=== PATIENT | female | born 1995 | race Caucasian/White ===

== ENCOUNTER → 2017-06-07 | Outpatient (CLI) | payer BC ==
[2017-06-10 10:08] LABS: CHLAMYDIA TRACH RNA*** NOT DETECTED (NOT DETECTED); GC (NEIS GONORRHOEAE)RNA** NOT DETECTED (NOT DETECTED)
== END | disposition home or self-care (01) ==
LOC: C.LABSPEC 13:20
PROVIDERS: ATTEND Obstetrics & Gynecology
DX: Z11.3 Encounter for screening for infections with a predominantly sexual mode of transmission (principal)

== ENCOUNTER → 2017-06-07 | Outpatient (CLI) | payer BC | END | disposition home or self-care (01) | LOC: C.PAPS 14:21 | PROVIDERS: ATTEND Obstetrics & Gynecology | DX: Z01.419 Encounter for gynecological examination (general) (routine) without abnormal findings (principal) ==

== ENCOUNTER → 2018-06-11 | Outpatient (CLI) | payer BC | END | disposition home or self-care (01) | LOC: C.LABSPEC 13:14 | PROVIDERS: ATTEND Obstetrics & Gynecology | DX: Z11.3 Encounter for screening for infections with a predominantly sexual mode of transmission (principal) ==

== ENCOUNTER → 2018-06-11 | Outpatient (CLI) | payer BC | END | disposition home or self-care (01) | LOC: C.PAPS 13:30 | PROVIDERS: ATTEND Obstetrics & Gynecology | DX: Z01.419 Encounter for gynecological examination (general) (routine) without abnormal findings (principal); Z11.51 Encounter for screening for human papillomavirus (HPV) ==

== ENCOUNTER 2021-03-22 07:30 | Inpatient (IN) ==
[2021-03-22] MEDS ORDERED: OXYTOCIN 30 UNITS/500 ML BAG IV PRN ×3 (07:51→17:45)
--- NOTE | 2021-03-22 08:24 | History & Physical Report ---
Date of Service March 22, 2021 Assessment & Plan (1) Post term over 40 weeks: (2) Diet controlled gestational diabetes mellitus: (3) Encounter for induction of labor: admit, iv, labs. cx favorable, will start pitocin. bsg now and then q2hr in labor. fhts categ 1. patient and partner agreeable. Admission and Anticipated Discharge Date Admission Date: March 22, 2021 History of Present Illness Chief Complaint: planned induction Primary Care Provider: Yuliet Fried 25yo at 40+wks ega with cc of planned induction. No rom, no vb. Had ripening balloon placed last night and fell out this am. +FM. No ctx PNC c/b 1. GDM diet controlled 2. Recent +covid, no sx, now beyond day 11 PNL rh pos, ri, GBS neg. Allergies Allergy/AdvReac Type Severity Reaction Status Date / Time No Known Drug Allergies Allergy Unknown Verified 03/22/21 08:10 Home Medications Medication Instructions Recorded Confirmed Type acetone (urine) test #50 01/13/21 03/21/21 Rx blood sugar diagnostic #150 01/13/21 03/21/21 Rx blood-glucose meter #1 01/13/21 03/21/21 Rx lancets 33 gauge #150 01/13/21 03/21/21 Rx prenat.vits,toni,ebs-exnh-jaama 1 tab PO DAILY 03/22/21 03/22/21 History [ Vitamin] Patient History Medical History (Updated 03/22/21 @ 08:25 by Sherry García MD, FACOG) Cervical cancer screening Encounter for annual routine gynecological examination Varicella vaccination Surgical History H/O wisdom tooth extraction Hx of appendectomy Family History Grandmother (Paternal) Colorectal cancer Mother Thyroid disorder Osteoporosis Father Nephrolithiasis Denies family history of Ovarian cancer Breast cancer Social History (Updated 07/29/20 @ 08:59 by Nolvia Cox) Smoking Status: Never smoker Hx Alcohol Use: No Hx Substance Use: No Preferred Language: Belarusian Communication Ability: Effective Tower 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 Required: No Beliefs That Will Affect Care: None marital status: marital status details: Jaquan Albrecht (29) [phone] Current Living Situation: Spouse Current Living Situation Comment: Jaquan current occupational status: employed current occupation: works from [employer] Other Information That Helps Us Care for You: No Feels Safe at Home: Yes Safety Concerns: Feels Safe At This Time Assistive Devices: None Physical Exam Constitutional: WD/WN, vitals as above Gastrointestinal (Abdomen): soft gravid nt, efw 7# Musculoskeletal: no edema Neurologic: grossly normal Psychiatric: A+Ox3, euthymic affect Genitourinary: OB Exam Abdomen: + estimated weight (7#) Manual OB Exam: + cervical dilation 4 cm, + cervical effacement 50% and + station -1 OB Exam Monitor Tracing: + external FHT monitor used (140 mod variability ), + external uterine monitor used (q3-8), + category I and + normal FHT variability Results & Data ([facility]) Vital Signs (Past 12 Hours) Vital Signs Temp Pulse Resp BP 03/22/21 07:50 98.2 F 20 03/22/21 07:48 83 114/75 Coding Level of Care Code None Diagnoses Post term over 40 weeks O48.0 Diet controlled gestational diabetes mellitus O24.410 Encounter for induction of labor Z34.90
[2021-03-22 08:46] LABS: Hematocrit (blood only) 36.1 % (37-47); Hemoglobin 12.6 g/dL (12.0-16.0); Mean Corpuscular Hemoglobin 32.1 pg (25-34); Mean Corpuscular Hgb Conc 34.9 g/dL (32-36); Mean Corpuscular Volume 92.1 fL (80-100); Mean Platelet Volume 11.2 fL (7.4-10.4); Platelet Count 264 K/uL (130-400); RDW Coefficient of Variation 13.5 % (11.5-14.5); RDW Standard Deviation 45.2 fL (36.4-46.3); Red Blood Count 3.92 M/uL (4.2-5.4); White Blood Count 9.79 K/uL (4.8-10.8)
[2021-03-22] MEDS: LACTATED RINGER'S 1,000 ML IV PRN ×2 (08:55→14:24)
--- NOTE | 2021-03-22 12:17 | Labor Progress Brief Note ---
Date of Service March 22, 2021 Subjective Feels ctx, not terribly uncomfortable Assessment & Plan (1) Post term over 40 weeks: (2) Diet controlled gestational diabetes mellitus: (3) Encounter for induction of labor: 25 y/o G1 at 40 4/7 wga presenting for IOL for A1GDM VSS Fetus cat 1 Labor - pit at 11, now s/p arom. Continue to augment GBS neg Epidural PRN GDM - BG wnl on admit, will q2h BG when active Admission and Anticipated Discharge Date Admission Date: March 22, 2021 Physical Exam Constitutional: WD/WN, vitals as above Respiratory: normal respiratory effort; no respiratory distress and no labored breathing Genitourinary: Manual OB Exam: + cervical dilation 4 cm, + cervical effacement 70%, + station -2 and + amniotic fluid (AROM) clear OB Exam Monitor Tracing: + external FHT monitor used, + external uterine monitor used (q3-4min) and + category I (125/mod/+accel/-decel) Results & Data ([facility]) Vital Signs (Past 12 Hours) Vital Signs Temp Pulse Resp BP 03/22/21 12:00 98.6 F 70 20 120/77 03/22/21 11:01 67 106/67 03/22/21 10:07 76 112/67 03/22/21 08:58 74 110/71 03/22/21 07:50 98.2 F 20 03/22/21 07:48 83 114/75 Coding Level of Care Code None Diagnoses Post term over 40 weeks O48.0 Diet controlled gestational diabetes mellitus O24.410 Encounter for induction of labor Z34.90
[2021-03-22] MEDS ORDERED: BUPIVACAINE 0.25% 30 ML VIAL ONE (14:13)
[2021-03-22] MEDS ORDERED: ePHEDrine sulfate 50 MG/ML AMP ONE (14:13)
[2021-03-22] MEDS ORDERED: fentaNYL citrate 100 MCG/2 ML VIAL ONE (14:13)
[2021-03-22] MEDS ORDERED: fentaNYL 2MCG/ML ROPIVACAINE 1.25MG/ML 100 ML BAG EPI ONE (14:14)
--- NOTE | 2021-03-22 15:01 | Anesthesiology Consultation ---
Date of Service March 22, 2021 Assessment & Plan Chart Review Chart Review: Acceptable Risk for Labor Epidural Consults Requested none History Height/Weight Height: 5 ft 6 in Weight: 72.575 kg Allergies Allergy/AdvReac Type Severity Reaction Status Date / Time No Known Drug Allergies Allergy Unknown Verified 03/22/21 08:10 Medications Home Medications Medication Instructions Recorded Confirmed Last Taken acetone (urine) test #50 01/13/21 03/21/21 Unknown blood sugar diagnostic #150 01/13/21 03/21/21 Unknown blood-glucose meter #1 01/13/21 03/21/21 Unknown lancets 33 gauge #150 01/13/21 03/21/21 Unknown prenat.vits,toni,hsa-oivx-jmrpk 1 tab PO DAILY 03/22/21 03/22/21 03/22/21 06:00 [ Vitamin] Active Medications Generic Name Dose Route Start Last Admin Trade Name Freq PRN Reason Stop Dose Admin Oxytocin 30 units in 500 mls @ 11 mls/hr 03/22/21 07:51 03/22/21 11:35 Pitocin IV 03/24/21 07:50 0.66 units/hr .Q24H PRN 11 mls/hr Labor Induction/Augmentation Titration Protocol 0.66 UNITS/HR Lactated Ringer's 1,000 mls @ 125 mls/hr 03/22/21 07:51 03/22/21 14:24 Lr IV 03/24/21 07:50 999 mls/hr .Q8H PRN Administration L&D Protocol Protocol Past Medical History Medical History Cervical cancer screening Encounter for annual routine gynecological examination Varicella vaccination Past Family History Family History Grandmother (Paternal) Colorectal cancer Mother Thyroid disorder Osteoporosis Father Nephrolithiasis Denies family history of Ovarian cancer Breast cancer Past Surgical History Surgical History H/O wisdom tooth extraction Hx of appendectomy Social History Smoking Status: Never smoker Hx Alcohol Use: No Hx Substance Use: No Physical Exam Vital Signs Last Vital Signs Temp 36.6 C 03/22/21 12:55 Pulse 78 04/28/21 15:00 Resp 18 03/22/21 12:55 BP 115/62 03/22/21 15:00 Pulse Ox 100 03/22/21 14:55 Testing Laboratory Results 03/22/21 08:31
[2021-03-22] MEDS ORDERED: ePHEDrine sulfate 50 MG/ML AMP IV PRN (15:03)
[2021-03-22] MEDS ORDERED: fentaNYL 2MCG/ML ROPIVACAINE 1.25MG/ML 100 ML BAG EPI PRN (15:03)
[2021-03-22] MEDS ORDERED: NALOXONE HCL 1 MG in SODIUM CHLORIDE 0.9% 1000ML 1,000 ML IV PRN (15:03)
[2021-03-22] MEDS ORDERED: NALOXONE HCL 0.4 MG/1 ML VIAL/CARP IV PRN (15:03)
[2021-03-22] MEDS ORDERED: diphenhydrAMINE 50 MG/ML VIAL IV PRN (15:03)
--- NOTE | 2021-03-22 17:01 | Delivery Summary ---
Vaginal Delivery Summary Date of Service March 22, 2021 Vaginal Delivery Summary (w/ vaginal laceration repair) PREOPERATIVE DIAGNOSIS: 1. Single intrauterine at 40 4/7 wga 2. A1GDM 3. Recent COVID+ POSTOPERATIVE DIAGNOSIS: 1. Single intrauterine at 40 4/7 wga 2. A1GDM 3. Recent COVID+ 4. Delivered PROCEDURE: 1. Normal spontaneous vaginal delivery. SURGEON: Tiki Gallardo MD ANESTHESIA: Epidural. ESTIMATED BLOOD LOSS: 300 mL FLUIDS: Continuous LR. URINE OUTPUT: None. COMPLICATIONS: None. CONDITION: Stable. INDICATIONS: 25 y/o G1 at 40 4/7 wga presented for IOL for A1GDM. No complaints on arrival. Induction was begun with quesada bulb that was placed last evening and fell out this morning. She was checked and found to be 4cm. Pitocin was started and she subsequently underwent AROM. She received an epidural for pain control. She then quickly progressed to complete and desired to push. FINDINGS: A viable male infant with Apgars of 8 and 9 at 1 and 5 minutes respectively. SPECIMEN: Cord blood OPERATIVE REPORT: The patient progressed to 10 cm, 100% effaced and +2 station, pushed over intact perineum with anesthesia to deliver a viable male infant, Apgars as above. Head of delivered in NICKI position. No nuchal cord was present. Body and shoulders were delivered without difficulty. was delivered to maternal abdomen and nursing staff. Delayed cord clamping was performed for 60 seconds. Cord was clamped and cut. Cord blood was obtained. Placenta delivered spontaneously intact with 3-vessel cord. IV oxytocin and fundal massage were given for excellent hemostasis. Vagina, cervix, perineum, and placenta were inspected. A vaginal and right labial laceration were noted, repaired in the usual fashion using 3-0 and 4-0 vicryl respectively. A hemostatic periurethral laceration was noted and repair not needed. There was excellent hemostasis. Sponge and needle counts correct x2. No sponges were left behind. Mother and stable in immediate period. [facility] [place] Vaginal Delivery Codes: 36531 global code for the antepartum, delivery, and post- Delivery Type Details: (w/ vaginal laceration repair)
--- NOTE | 2021-03-22 17:14 | Anesthesia Procedure Note ---
Date of Service March 22, 2021 Anesthesia Post Epidural Note Vital Signs Vital Signs: Temp Pulse Resp BP Pulse Ox 36.6 C 66 18 110/55 L 100 03/22/21 12:55 03/22/21 17:11 03/22/21 12:55 03/22/21 17:11 03/22/21 16:25 Notes Mental Status: alert / awake / arousable Nausea / Vomiting: adequately controlled Pain: adequately controlled Airway Patency, RR, SpO2: stable & adequate BP & HR: stable & adequate Hydration State: stable & adequate Neuraxial Anesthesia: was administered and sensory block is resolving Anesthetic Complications: no major complications apparent and Pt Satisfied with anesthetic care Epidural: Removed without complications and With tip intact
[2021-03-22] MEDS ORDERED: BENZOCAINE 20% AER SPR 82.5 GM CAN EXT PRN (17:45)
[2021-03-22] MEDS ORDERED: HYDROCORTISONE ACETATE 25 MG SUPP PR PRN (17:45)
[2021-03-22] MEDS ORDERED: SUPERCREAM 0.870% 15 GM JAR EXT PRN (17:45)
[2021-03-22] MEDS ORDERED: ACETAMINOPHEN 325 MG TAB PO PRN (17:45)
[2021-03-22] MEDS ORDERED: bisacodyL 10 MG SUPP PR PRN (17:45)
[2021-03-22] MEDS ORDERED: LACTATED RINGER'S 1,000 ML IV SCH (17:45)
[2021-03-22] MEDS ORDERED: DIPHTHERIA/TETANUS/PERTUSSIS 0.5 ML SYR/VIAL IM ONE (17:45)
[2021-03-22] MEDS: DOCUSATE SODIUM 100 MG CAP PO SCH (20:28)
[2021-03-22] MEDS: IBUPROFEN 600 MG TAB PO PRN (21:26)
--- NOTE | 2021-03-23 06:30 | Obstetrical Progress Note ---
Date of Service <Gilbert Nunes MD - Last Filed: 03/23/21 07:32> March 23, 2021 Assessment & Plan <Gilbert Nunes MD - Last Filed: 03/23/21 07:32> (1) Post term over 40 weeks: A/P: Maximino Albrecht is a 25yo female G1 on PPD#1 following IOL at 40+4wga. * Patient feels well today; eating well, voiding well, ambulating well * Pain well-controlled with ibuprofen 600mg q4h prn * PNL: Rh pos, RI, GBS neg * Covid+ on 03/08/21 * Routine care: OOB, ambulation, diet progression as tolerated * After discharge, will have six-week follow-up with Dr. Paulina Granger <Gilbert Nunes MD - Last Filed: 03/23/21 07:32> Maximino Albrecht is a 25yo female G1 on PPD#1 following IOL at 40+4wga. This morning she reports feeling well overall. Reports mild, 2/10 crampy abdominal pain well-managed on analgesics. Tolerating PO intake without nausea or vomiting. Patient has been able to ambulate without lightheadedness or dizziness. Voiding well without difficulty. Lochia continues, though with some improvement this morning. Currently . Review of Systems Denies fever, chills, CP, SOB, cough, breast pain, dysuria, leg pain, leg swelling, headache, and changes in vision. Physical Exam <Gilbert Nunes MD - Last Filed: 03/23/21 07:32> General: alert, oriented, no acute distress Cardiac: regular rate and rhythm, no murmurs appreciated Respiratory: lungs clear to auscultation bilaterally a/p, no wheezes/rales/rhonchi, no increased work of breathing, symmetrical chest rise, no respiratory distress Abdomen: soft, minimally tender, nondistended, bowel sounds present Uterus: uterine fundus firm, palpable 4cm below umbilicus Lower extremities: no lower extremity edema or swelling, no deep calf pain, Parmjit's negative bilaterally Results & Data ([facility]) <Gilbert Nunes MD - Last Filed: 03/23/21 07:32> Vital Signs (Past 12 Hours) Vital Signs Temp Pulse Pulse Resp BP BP Pulse Ox 03/23/21 05:25 37.1 C 63 16 115/76 98 03/22/21 23:00 37.1 C 64 16 124/70 100 03/22/21 19:30 37.1 C 83 16 133/74 99 03/22/21 18:55 75 118/67 03/22/21 18:40 73 116/63 <Tiki Gallardo MD - Last Filed: 03/23/21 07:46> Co-Signing Physician Notes Resident Physician Supervision Note: I interviewed and examined the patient. Discussed with Dr. Nunes and agree with findings and plan as documented in the note. Any exceptions or clarifications are listed here: PP1, doing well, meeting milestones. VSS, exam benign and wnl. Plan for d/c home tomorrow Documented By: Tiki Gallardo MD Resident Activity Tracking <Gilbert Nunes MD - Last Filed: 03/23/21 07:32> Resident Involvement: Resident Care Provided Care Provided: OB Delivery
[2021-03-23 06:32] LABS: Hematocrit (blood only) 31.7 % (37-47); Hemoglobin 10.9 g/dL (12.0-16.0); Mean Corpuscular Hemoglobin 31.9 pg (25-34); Mean Corpuscular Hgb Conc 34.4 g/dL (32-36); Mean Corpuscular Volume 92.7 fL (80-100); Platelet Count 219 K/uL (130-400); RDW Coefficient of Variation 13.7 % (11.5-14.5); Red Blood Count 3.42 M/uL (4.2-5.4); White Blood Count 13.46 K/uL (4.8-10.8)
[2021-03-23] MEDS: PRENATAL VITAMIN 1 TAB PO SCH (08:20)
[2021-03-23] MEDS: DOCUSATE SODIUM 100 MG CAP PO SCH ×2 (08:20→19:58)
[2021-03-23] MEDS: IBUPROFEN 600 MG TAB PO PRN (08:20)
[2021-03-23] MEDS ORDERED: NON-FORMULARY MEDICATION (Prenat.Vits,Cal,Min-Iron-Folic Tablet) PO SCH (09:00)
[2021-03-24 06:18] LABS: Hematocrit (blood only) 33.4 % (37-47); Hemoglobin 11.2 g/dL (12.0-16.0)
--- NOTE | 2021-03-24 06:23 | Obstetrical Progress Note ---
Date of Service <Gilbert Nunes MD - Last Filed: 03/24/21 07:02> March 24, 2021 Assessment & Plan <Gilbert Nunes MD - Last Filed: 03/24/21 07:02> (1) Post term over 40 weeks: A/P: Maximino Albrecht is a 25yo female G1 on PPD#2 following IOL at 40+4wga. * Patient feels well today; eating well, voiding well, ambulating well * Pain well-controlled with ibuprofen 600mg q4-6h prn * PNL: Rh pos, RI, GBS neg * Covid+ on 03/08/21 * Routine care: OOB, ambulation, diet progression as tolerated * After discharge, will have six-week follow-up with Dr. Paulina Granger <Gilbert Nunes MD - Last Filed: 03/24/21 07:02> Maximino Albrecht is a 25yo female G1 on PPD#2 following IOL at 40+4wga. This morning she reports feeling well, more rested than yesterday. Reports minimal abdominal pain, well-managed on analgesics. Tolerating PO intake without nausea or vomiting. Patient has been able to ambulate without lightheadedness or dizziness. Voiding well without difficulty. Lochia continues, though with some improvement this morning. Currently . She does note mild swelling of her hands and feet, though this has improved since yesterday. Denies fever, chills, CP, SOB, cough, breast pain, dysuria, leg pain, leg swelling, headache, and changes in vision. Physical Exam <Gilbert Nunes MD - Last Filed: 03/24/21 07:02> General: alert, oriented, no acute distress Cardiac: regular rate and rhythm, no murmurs appreciated Respiratory: lungs clear to auscultation bilaterally a/p, no wheezes/rales/rhonchi, no increased work of breathing, symmetrical chest rise, no respiratory distress Abdomen: soft, minimally tender, nondistended, bowel sounds present Uterus: uterine fundus firm, palpable below umbilicus Lower extremities: trace edema of the hands and feet bilaterally, no deep calf tenderness, Parmjit's negative bilaterally Results & Data ([facility]) <Gilbert Nunes MD - Last Filed: 03/24/21 07:02> Vital Signs (Past 12 Hours) Vital Signs Temp Pulse Resp BP Pulse Ox 03/23/21 23:15 36.7 C 83 16 114/73 97 03/23/21 19:55 37.1 C 85 16 120/76 96 <Shari Nolasco MD - Last Filed: 03/24/21 07:11> Co-Signing Physician Notes Resident Physician Supervision Note: I interviewed and examined the patient. Discussed with Dr. Jett and agree with findings and plan as documented in the note. Any exceptions or clarifications are listed here: [ ] Documented By: Shari Nolasco MD, FACOG Resident Activity Tracking <Gilbert Nunes MD - Last Filed: 03/24/21 07:02> Resident Involvement: Resident Care Provided Care Provided: OB Delivery
[2021-03-24] MEDS: DOCUSATE SODIUM 100 MG CAP PO SCH (08:32)
[2021-03-24] MEDS: PRENATAL VITAMIN 1 TAB PO SCH (08:32)
== END 2021-03-24 11:57 | disposition home or self-care (01) | DRG 807 ==
LOC: 4S1 07:30 → 4S2 19:28

== ENCOUNTER 2023-05-02 08:23 | Inpatient (IN) ==
[2023-05-02] MEDS ORDERED: DEXTROSE 50% 50 ML SYRINGE IV PRN (08:44)
[2023-05-02] MEDS ORDERED: SODIUM CHLORIDE 0.9% 1000ML 1,000 ML IV PRN (08:44)
[2023-05-02] MEDS ORDERED: DEXTROSE 5% 1,000 ML IV PRN (08:44)
[2023-05-02] MEDS ORDERED: OXYTOCIN 30 UNITS/500 ML BAG IV PRN ×3 (08:44→16:44)
[2023-05-02] MEDS ORDERED: LIDOCAINE 1% LOCAL 20 ML VIAL INFIL PRN (08:44)
[2023-05-02] MEDS ORDERED: INSULIN REGULAR 250 UNITS in SODIUM CHLORIDE 0.9% 247.5 ML IV PRN (08:44)
--- NOTE | 2023-05-02 08:59 | History & Physical Report ---
Date of Service May 02, 2023 Assessment & Plan (1) Encounter for induction of labor: (2) Insulin controlled gestational diabetes mellitus (GDM) during : Plan - Will admit to L&D for induction of labor. - CBC and CMP mostly benign. No s/s of eclampsia. - glucose checks Q4H due to GDM, took insulin last night. - Covid negative - anesthesia consulted for epidural. Admission and Anticipated Discharge Date Admission Date: May 02, 2023 History of Present Illness Chief Complaint: Induction of labor Primary Care Provider: Yuliet Fried at 39w 1d confirmed via LMP. Here for indcution. Complications with this include GDM on insulin. Has been attending OB appointments regularly. Currently taking no medications. Contractions: none. Fluid or Blood loss: none Movement: active Labs - Blood type: O+ - Antibody screen: negative - H.6 - Hct: 33.2 - Plt: 319 - Rubella: immune - VDRL/RPR: negative - Gonorrhea: negative - Chlamydia: negative - HIV: negative - HbSAg: negative - GBS: negative - Glucose tolerance x 2: high, GDM Allergies Allergy/AdvReac Type Severity Reaction Status Date / Time No Known Drug Allergies Allergy Unknown Verified 05/01/23 13:17 Home Medications Medication Instructions Recorded Confirmed Type prenat.vits,toni,sdc-rxne-tkddr 1 tab PO DAILY 03/22/21 05/01/23 History omega-3 fatty acids [Fish Oil] PO 05/14/22 05/01/23 History acetone (urine) test (Ketone Urine #50 ea 10/05/22 05/01/23 Rx Test strips) blood sugar diagnostic (OneTouch #150 ea 10/11/22 05/01/23 Rx Verio test strips) pen needle, diabetic 32 gauge x #50 ea 10/26/22 05/01/23 Rx 5/32" (BD Ultra-Fine Sylvia Pen Needle) insulin NPH isoph U-100 human 100 3 unit (0.03 mL) subcut QPM #15 mL 03/08/23 05/01/23 Rx unit/mL (3 mL) subcutaneous pen (Novolin N FlexPen) Patient History Medical History (Updated 05/02/23 @ 10:06 by Dano Crowell DO) Cervical cancer screening Diet controlled gestational diabetes mellitus Encounter for annual routine gynecological examination Encounter for induction of labor Post term over 40 weeks Varicella vaccination Surgical History H/O wisdom tooth extraction Hx of appendectomy Family History Grandmother (Paternal) Colorectal cancer Mother Thyroid disorder Osteoporosis Father Nephrolithiasis Denies family history of Ovarian cancer Breast cancer Uterine cancer Social History (Updated 09/26/22 @ 07:38 by Patricia Deleon) Smoking Status: Never smoker Second Hand Exposure: No; Do You Dip or Chew Tobacco: No; Tobacco Cessation Education Requested by Patient: No Hx Alcohol Use: No Hx Substance Use: No Preferred Language: Greek Communication Ability: Effective Tree Care Foreman Required: No Beliefs That Will Affect Care: None marital status: marital status details: Jaquan Albrecht (31) [phone] Current Living Situation: Spouse Current Living Situation Comment: Jaquan- , Son- Fernando current occupational status: employed 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 Denies breast pain. Denies dysuria. Denies headache or changes in vision. Physical Exam Physical Exam: General: Alert, oriented. No acute distress. Cardiac: Regular rate and rhythm, no murmurs/rubs/gallops. Respiratory: Clear to auscultation bilaterally a/p, no wheezes/rales/rhonchi. No increased work of breathing. Symmetrical chest rise. No respiratory distress. Abdomen: Gravid; Cat 1 FHTs; Position: Cephalic presentation, 7-8 EFW Pelvic: Dilation 1.5cm; Effacement 40; Station -[address] Araujo Lower Extremities: No lower extremity edema or swelling. No deep calf pain. Parmjit's negative bilaterally Supervising Physician Co-Signing Physician Notes Patient seen with resident and agree with the above findings and plan Resident Activity Tracking Resident Involvement: Resident Care Provided Care Provided: OB Delivery
[2023-05-02 09:27] LABS: Hemoglobin 11.9 g/dl (12.0-16.0); Mean Corpuscular Volume 94.1 fL (80.0-100.0); Mean Platelet Volume 10.6 fL (9.4-12.4); Platelet Count 241 K/uL (130-400); RDW Coefficient of Variation 13.7 % (11.5-14.5); RDW Standard Deviation 47.3 fL (36.4-46.3); Red Blood Count 3.72 M/uL (4.20-5.40); White Blood Count 8.47 K/ul (4.8-10.8)
[2023-05-02] MEDS: LACTATED RINGER'S 1,000 ML IV PRN ×2 (09:35→12:55)
[2023-05-02 10:25] LABS: Albumin Level 3.3 gm/dl (3.4-5.0); Bilirubin,Total 0.6 mg/dl (0.2-1.0); Calcium 8.8 mg/dl (8.6-10.3); Potassium 3.6 mmol/L (3.5-5.1)
[2023-05-02 10:31] LABS: Albumin Globulin Ratio 1.1 (0.9-2); BUN Creatinine Ratio 25.9 (10-20); Creatinine Clr Calc Pharmacy 155.1 ml/min; Est GFR (African American) 145.4 ml/min; Est GFR (Non-African American) 125.4 ml/min; Total Protein 6.3 gm/dl (6.0-8.3)
[2023-05-02] MEDS ORDERED: ePHEDrine sulfate 50 MG/ML AMP ONE (12:09)
[2023-05-02] MEDS ORDERED: fentaNYL citrate PF 100 MCG/2 ML VIAL ONE (12:09)
[2023-05-02] MEDS ORDERED: SODIUM CHLORIDE 0.9% PF INJ 10 ML VIAL ONE (12:10)
[2023-05-02] MEDS ORDERED: fentaNYL 2MCG/ML ROPIVACAINE 1.25MG/ML 100 ML BAG EPI ONE (12:10)
[2023-05-02] MEDS ORDERED: BUPIVACAINE 0.25% PF 30 ML VIAL ONE (12:10)
[2023-05-02] MEDS ORDERED: LIDOCAINE 2%/EPINEPHRINE 1:200,000 20 ML PF ONE (12:10)
[2023-05-02] MEDS ORDERED: fentaNYL citrate PF 100 MCG/2 ML VIAL EPI PRN (12:29)
[2023-05-02] MEDS ORDERED: NALOXONE HCL 1 MG in SODIUM CHLORIDE 0.9% 1000ML 1,000 ML IV PRN (12:29)
[2023-05-02] MEDS ORDERED: BUPIVACAINE 0.25% PF 30 ML VIAL EPI STA (12:29)
[2023-05-02] MEDS ORDERED: diphenhydrAMINE 50 MG/ML VIAL IV PRN (12:29)
[2023-05-02] MEDS ORDERED: SODIUM CHLORIDE 0.9% PF INJ 10 ML VIAL EPI STA (12:29)
[2023-05-02] MEDS ORDERED: fentaNYL citrate PF 100 MCG/2 ML VIAL EPI STA (12:29)
[2023-05-02] MEDS ORDERED: ROPIVACAINE 0.5% PF 5 MG/ML 20 ML VIAL EPI PRN (12:29)
[2023-05-02] MEDS ORDERED: LIDOCAINE 2%/EPINEPHRINE 1:200,000 20 ML PF EPI STA (12:29)
[2023-05-02] MEDS ORDERED: NALOXONE HCL 0.4 MG/1 ML VIAL/CARP IV PRN (12:29)
[2023-05-02] MEDS ORDERED: ePHEDrine sulfate 50 MG/ML AMP IV PRN (12:29)
[2023-05-02] MEDS ORDERED: LIDOCAINE 2% MPF LOCAL 5 ML VIAL EPI PRN (12:29)
[2023-05-02] MEDS ORDERED: SODIUM CHLORIDE 0.9% PF INJ 10 ML VIAL EPI PRN (12:29)
[2023-05-02] MEDS ORDERED: fentaNYL 2MCG/ML ROPIVACAINE 1.25MG/ML 100 ML BAG EPI PRN (12:29)
[2023-05-02] MEDS ORDERED: NALBUPHINE HCL INJ 10 MG/ML AMP IV PRN (12:29)
[2023-05-02] MEDS ORDERED: BUPIVACAINE 0.25% PF 30 ML VIAL EPI PRN (12:29)
--- NOTE | 2023-05-02 12:29 | Anesthesiology Consultation ---
Date of Service May 02, 2023 Assessment & Plan (1) Encounter for pre-operative examination: Chart Review Chart Review: Acceptable Risk for Surgery and Patient NOT seen in Pre Admission Testing Consults Requested none History Height/Weight Height: 5 ft 6 in Weight: 81.193 kg Allergies Allergy/AdvReac Type Severity Reaction Status Date / Time No Known Drug Allergies Allergy Unknown Verified 05/01/23 13:17 Medications Home Medications Medication Instructions Recorded Confirmed Last Taken prenat.vits,toni,mac-ghmv-dcgon 1 tab PO DAILY 03/22/21 05/01/23 03/22/21 06:00 omega-3 fatty acids [Fish Oil] PO 05/14/22 05/01/23 Unknown acetone (urine) test (Ketone Urine #50 ea 10/05/22 05/01/23 Unknown Test strips) blood sugar diagnostic (OneTouch #150 ea 10/11/22 05/01/23 Unknown Verio test strips) pen needle, diabetic 32 gauge x #50 ea 10/26/22 05/01/23 Unknown 532" (BD Ultra-Fine Sylvia Pen Needle) insulin NPH isoph U-100 human 100 3 unit (0.03 mL) subcut QPM #15 mL 03/08/23 05/01/23 Unknown unit/mL (3 mL) subcutaneous pen (Novolin N FlexPen) Active Medications Generic Name Dose Route Start Last Admin Trade Name Freq PRN Reason Stop Dose Admin Lactated Ringer's 1,000 mls @ 125 mls/hr 05/02/23 08:44 05/02/23 12:19 Lr IV 05/04/23 08:43 999 mls/hr .Q8H PRN Infusion L&D Protocol Protocol Oxytocin 30 units in 500 mls @ 8 mls/hr 05/02/23 09:28 05/02/23 11:45 Pitocin IV 05/04/23 09:27 0.48 units/hr .Q24H PRN 8 mls/hr Labor Induction/Augmentation Titration Protocol 0.48 UNITS/HR Past Medical History Medical History Cervical cancer screening Diet controlled gestational diabetes mellitus Encounter for annual routine gynecological examination Encounter for induction of labor Post term over 40 weeks Varicella vaccination Past Family History Family History Grandmother (Paternal) Colorectal cancer Mother Thyroid disorder Osteoporosis Father Nephrolithiasis Denies family history of Ovarian cancer Breast cancer Uterine cancer Past Surgical History Surgical History H/O wisdom tooth extraction Hx of appendectomy Social History Smoking Status: Never smoker Do You Dip or Chew Tobacco: No Hx Alcohol Use: No Hx Substance Use: No Physical Exam Vital Signs Last Vital Signs Temp 98.4 F 05/02/23 12:21 Pulse 72 05/02/23 12:23 Resp 18 05/02/23 12:21 BP 123/66 05/02/23 12:16 Pulse Ox 100 05/02/23 12:23 Testing Laboratory Results 05/02/23 08:52 05/02/23 08:52 05/02/23 10:05 POC Glucose 79
[2023-05-02] MEDS ORDERED: NURSING L&D Epidural Breakthrough Pain Update ONE (15:49)
[2023-05-02] MEDS ORDERED: DIPHTHERIA/TETANUS/PERTUSSIS Vaccine (Tdap, Age 7+yrs) 0.5mL SYR/VL IM ONE (16:44)
[2023-05-02] MEDS ORDERED: BENZOCAINE 20% AER SPR 82.5 GM CAN EXT PRN (16:44)
[2023-05-02] MEDS ORDERED: bisacodyL 10 MG SUPP PR PRN (16:44)
[2023-05-02] MEDS ORDERED: HYDROCORTISONE ACETATE 25 MG SUPP PR PRN (16:44)
[2023-05-02] MEDS ORDERED: ACETAMINOPHEN 325 MG TAB PO PRN (16:44)
--- NOTE | 2023-05-02 19:17 | Anesthesia Procedure Note ---
Date of Service May 02, 2023 Anesthesia Post Epidural Note Vital Signs Vital Signs: Temp Pulse Resp BP Pulse Ox O2 Del Method 99.0 F 79 18 120/80 100 Room Air 05/02/23 19:16 05/02/23 19:16 05/02/23 19:16 05/02/23 19:16 05/02/23 19:16 05/02/23 19:16 Notes Mental Status: alert / awake / arousable and participated in evaluation Nausea / Vomiting: adequately controlled Pain: adequately controlled Airway Patency, RR, SpO2: stable & adequate BP & HR: stable & adequate Hydration State: stable & adequate Neuraxial Anesthesia: was administered and sensory block is resolving Anesthetic Complications: no major complications apparent and Pt Satisfied with anesthetic care Epidural: Removed without complications and With tip intact
[2023-05-02] MEDS: DOCUSATE SODIUM 100 MG CAP PO SCH (20:53)
--- NOTE | 2023-05-02 22:00 | Delivery Summary ---
DATE OF SERVICE: 05/02/2023 PROCEDURE: Normal spontaneous vaginal delivery with first-degree perineal laceration repair. SURGEON: Issac Araujo MD PREOPERATIVE DIAGNOSES: 1. Single intrauterine at 39 weeks 1 day gestational age. 2. Insulin-dependent gestational diabetes. POSTOPERATIVE DIAGNOSES: 1. Single intrauterine at 39 weeks 1 day gestational age. 2. Insulin-dependent Gestational diabetes. 3. Status post procedure. ESTIMATED BLOOD LOSS: 300 mL. DRAINS: Straight cath at the completion of the case. URINE OUTPUT: 400 mL per straight cath. COMPLICATIONS: None. FINDINGS: Viable with weight and Apgars pending. DESCRIPTION OF PROCEDURE: The patient progressed to 10 cm dilated, 100% effaced, positive 2 station, pushed over intact perineum with epidural anesthesia and delivered a viable with weight and Apgars as noted above. Head of the delivered in TRISTAN position, restituted to left transverse. The right hand was noted to be near the chin. The head was delivered and the arm was deliver ed through without difficulty. Body and shoulders quickly followed. was noted to be vigorous soon after delivery and a 1-minute delayed cord clamping was initiated. Cord was then double clampe d and cut. remained on maternal abdomen. Cord blood was obtained. Attention was then turne d to delivery of the placenta, which was delivered intact, 3-vessel cord, gentle cord traction. On i nspection of perineum, vagina, cervix, there was noted to be a first-degree perineal laceration, whic h was repaired with 3-0 Vicryl in continuous running stitch. Needle, sponge, and instrument counts w ere correct at the completion of the case. Both mother and stable in the immediate post-deli very period. Job ID: [id number]
[2023-05-03] MEDS: IBUPROFEN 600 MG TAB PO PRN ×2 (04:00→08:40)
--- NOTE | 2023-05-03 07:59 | Obstetrical Progress Note ---
Date of Service <Dano Crowell DO - Last Filed: 05/03/23 08:28> May 03, 2023 Assessment & Plan <Dano Crowell DO - Last Filed: 05/03/23 08:28> (1) Vaginal delivery: (2) Insulin controlled gestational diabetes mellitus (GDM) during : Plan - Feels well today. Eating well, voiding well, ambulating well. - Pain well controlled with ibuprofen 600mg Q4H PRN - Routine care -- OOB, ambulation, diet progression as tolerated - After discharge will have 6 week follow-up with Dr. Araujo. - We will discharge later today. Day #:: 1 <Issac Araujo MD - Last Filed: 05/07/23 13:14> (1) Vaginal delivery: (2) Insulin controlled gestational diabetes mellitus (GDM) during : Subjective <Dano Crowell DO - Last Filed: 05/03/23 08:28> Ambulation: ambulating normally Voiding: no voiding problems Passing Gas:: Yes Diet Tolerance:: regular diet Lochia:: Small Feeding Type:: breast feeding Current Pain Level(1-10): 2 Review of Systems Denies fever, chills, sweats Denies shortness of breath, difficulty breathing, chest pain, palpitations, chest pressure. Denies breast pain. Denies dysuria. Denies headache or changes in vision. Physical Exam <Dano Crowell DO - Last Filed: 05/03/23 08:28> General: Alert, oriented. No acute distress. Cardiac: Regular rate and rhythm, no murmurs/rubs/gallops. Respiratory: Clear to auscultation bilaterally a/p, no wheezes/rales/rhonchi. No increased work of breathing. Symmetrical chest rise. No respiratory distress. Abdomen: Soft, nontender, nondistended. Bowel sounds present. Uterus: Uterine fundus firm, palpable 1 cm below umbilicus. Lower Extremities: No lower extremity edema or swelling. No deep calf pain. Parmjit's negative bilaterally. Results & Data <Dano Crowell DO - Last Filed: 05/03/23 08:28> Vital Signs (Past 12 Hours) Vital Signs Temp Pulse Resp BP Pulse Ox O2 Del Method 05/03/23 03:33 36.8 C 68 18 116/78 97 Room Air 05/02/23 23:04 36.8 C 69 18 108/74 97 Room Air <Issac Araujo MD - Last Filed: 05/07/23 13:14> Co-Signing Physician Notes Patient seen with resident and agree with the above findings and plan. Stable for discharge Resident Activity Tracking <Dano Crowell DO - Last Filed: 05/03/23 08:28> Resident Involvement: Resident Care Provided Care Provided: OB Delivery
[2023-05-03] MEDS ORDERED: PRENATAL VITAMIN 1 TAB PO SCH (08:00)
[2023-05-03] MEDS ORDERED: FERROUS SULFATE 325 MG TAB PO SCH (08:00)
[2023-05-03] MEDS: DOCUSATE SODIUM 100 MG CAP PO SCH (08:40)
[2023-05-03] MEDS ORDERED: bisacodyL 5 MG TABEC PO SCH (20:00)
== END 2023-05-03 18:20 | disposition home or self-care (01) | DRG 807 ==
LOC: 4S1 08:23 → 4E2 19:28
DX: Z37.0 Single live birth; O70.0 First degree perineal laceration during delivery; O24.414 Gestational diabetes mellitus in pregnancy, insulin controlled; Z3A.39 39 weeks gestation of pregnancy